=== PATIENT | female | born 1970 | race Caucasian/White ===

== ENCOUNTER → 2016-10-01 | Outpatient (CLI) | payer BC ==
[~2016-10-01] MED LIST: MULTIVITAMINS
[2016-10-01 08:29] LABS: ALBUMIN 4.3 g/dl (3.3-4.9)
[2016-10-01 08:32] LABS: BILIRUBIN,INDIRECT 0.3 mg/dl (0-1.1); BILIRUBIN,TOTAL 0.3 mg/dl (0.2-1.3); CHOL/HDL RATIO 2.5 RATIO; TOTAL PROTEIN 7.9 g/dl (6.1-8.1)
== END | disposition home or self-care (01) ==
LOC: LAB 07:51
PROVIDERS: ATTEND Emergency Medicine
DX: L70.0 Acne vulgaris (principal)
CPT/HCPCS: 80061; 80076; 84702

== ENCOUNTER → 2016-12-24 | Outpatient (CLI) | payer BC ==
[2016-12-24 08:54] LABS: ALBUMIN 4.1 g/dl (3.3-4.9); CHOL/HDL RATIO 2.7 RATIO; TOTAL PROTEIN 7.3 g/dl (6.1-8.1)
== END | disposition home or self-care (01) ==
LOC: EEVIPCON 07:18 → LAB 07:18
PROVIDERS: ATTEND Physician Assistant
DX: L70.9 Acne, unspecified (principal); Z79.899 Other long term (current) drug therapy
CPT/HCPCS: 80061; 80076; 84702

== ENCOUNTER → 2017-01-29 | Outpatient (CLI) | payer BC ==
[2017-01-29 07:32] LABS: HAAIG REFLEX REFLEX FILED
[2017-01-29 09:12] LABS: CHOL/HDL RATIO 3.7 RATIO; CHOLESTEROL 115 mg/dl (100-200); HDL CHOLESTEROL 31 mg/dl (34-88); TRIGLYCERIDES 43 mg/dl (0-149)
[2017-01-30 12:54] LABS: HEPATITIS B CORE ANTIBODY NEGATIVE (NEGATIVE)
== END | disposition home or self-care (01) ==
LOC: LAB 07:19
PROVIDERS: ATTEND Physician Assistant
DX: L70.0 Acne vulgaris (principal)
CPT/HCPCS: 80061; 84703; 86704; 86709; 86803; 87340

== ENCOUNTER → 2017-02-02 | Outpatient (CLI) | payer BC ==
[2017-02-02 08:21] LABS: ALBUMIN 4.6 g/dl (3.3-4.9); TOTAL PROTEIN 7.4 g/dl (6.1-8.1)
== END | disposition home or self-care (01) ==
LOC: LAB 07:22
PROVIDERS: ATTEND Physician Assistant
DX: L70.9 Acne, unspecified (principal)
CPT/HCPCS: 80076

== ENCOUNTER → 2017-03-01 | Outpatient (CLI) | payer BC ==
[2017-03-01 08:31] LABS: ALBUMIN 4.7 g/dl (3.3-4.9); CHOL/HDL RATIO 3.3 RATIO; TOTAL PROTEIN 7.8 g/dl (6.1-8.1)
== END | disposition home or self-care (01) ==
LOC: LAB 07:52
PROVIDERS: ATTEND Physician Assistant
DX: L70.0 Acne vulgaris (principal)
CPT/HCPCS: 80061; 80076; 84702

== ENCOUNTER → 2017-03-15 | Outpatient (CLI) | payer BC | END | disposition home or self-care (01) | LOC: LAB 08:26 | PROVIDERS: ATTEND Physician Assistant | DX: L70.0 Acne vulgaris (principal) | CPT/HCPCS: 84703 ==

== ENCOUNTER → 2017-04-10 | Outpatient (CLI) | END | disposition home or self-care (01) | DX: L70.0 Acne vulgaris (principal) ==

== ENCOUNTER → 2017-05-17 | Outpatient (CLI) | payer BC ==
[2017-05-17 07:51] LABS: ALBUMIN 4.6 g/dl (3.3-4.9); BILIRUBIN,INDIRECT 0.2 mg/dl (0-1.1); BILIRUBIN,TOTAL 0.2 mg/dl (0.2-1.3); CHOL/HDL RATIO 3.4 RATIO; TOTAL PROTEIN 8.4 g/dl (6.1-8.1)
== END | disposition home or self-care (01) ==
LOC: LAB 07:11
PROVIDERS: ATTEND Physician Assistant
DX: L70.0 Acne vulgaris (principal)
CPT/HCPCS: 80061; 80076; 84702

== ENCOUNTER → 2017-05-27 | Outpatient (CLI) | payer BC | END | disposition home or self-care (01) | LOC: LAB 17:17 | PROVIDERS: ATTEND Physician Assistant | DX: L70.0 Acne vulgaris (principal) | CPT/HCPCS: 84703 ==

== ENCOUNTER → 2018-10-23 | Outpatient (CLI) | payer BC | END | disposition home or self-care (01) | LOC: LAB 10:32 | PROVIDERS: ATTEND Emergency Medicine | DX: Z00.00 Encounter for general adult medical examination without abnormal findings (principal) | CPT/HCPCS: 80053; 82306; 82533; 82607; 82626; 82670; 82728; 82746; 83036; 83090; 84403; 84436; 84443; 84479; 84481; 85025 ==

== ENCOUNTER → 2018-10-23 | Outpatient (CLI) | payer BC | END | disposition home or self-care (01) | LOC: RAD 10:37 | PROVIDERS: ATTEND Emergency Medicine | DX: E04.9 Nontoxic goiter, unspecified (principal) | CPT/HCPCS: 76536 ==

== ENCOUNTER → 2019-05-09 | Outpatient (CLI) | payer BC | END | disposition home or self-care (01) | LOC: LAB 05:18 | PROVIDERS: ATTEND Internal Medicine | DX: E55.9 Vitamin D deficiency, unspecified (principal); E03.9 Hypothyroidism, unspecified; E78.5 Hyperlipidemia, unspecified; R73.03 Prediabetes | CPT/HCPCS: 80053; 80061; 81001; 82306; 83036; 84436; 84443; 85025; 86140 ==